=== PATIENT | female | born 1975 | race Caucasian/White ===

== ENCOUNTER 2017-09-11 13:07 | Emergency (ER) | payer BC, OTHER ==
[2017-09-11] MEDS ORDERED: Ketorolac Tromethamine 30 MG/ML VIAL ONE (13:58)
[2017-09-11] MEDS ORDERED: Ondansetron HCl/PF 4 MG/2 ML Vial ONE (13:58)
[2017-09-11 14:12] LABS: Bilirubin Negative (Negative); Blood, Urine Small (Negative); Clarity CLEAR (Clear); Glucose, Urine (Dipstick) Negative (Negative); Leukocyte Negative (Negative); Nitrite Negative (Negative); Protein, Urine (Dipstick) Negative (Neg-Trace); Specific Gravity, Urine 1.022 (1.002-1.036); Urobilinogen 0.2 mg/dL (0.2-1.0); pH, Urine 5.5 (5.0-9.0)
[2017-09-11 14:13] LABS: Bacteria/HPF None Seen HPF (None Seen); Hyaline Casts/LPF 0-3 HYALINE CAST LPF (0-3 Hyaline); Pathc Cast-AUWi Flag 0.54 (0-2.49); Squamous Epithelial 0-3 HPF (0-3); WBC/HPF 0-3 HPF (0-3)
[2017-09-11 14:14] LABS: Pregnancy Test - Urine (BHCG) Negative (Negative); Pregu Control Background? CLEAR/WHITE (CLR/WHITE); Pregu Control Bar Appear? YES (CONTROL BAR); Specific Gravity 1.022 (1.002-1.036)
[2017-09-11 14:17] LABS: #Basophils 0.1 thou/uL (0.0-0.2); #Eosinphils 0.2 thou/uL (0.0-0.7); #Lymphocytes 2.4 thou/uL (1.20-3.40); #Monocytes 0.6 thou/uL (0.11-0.59); #Neutrophils 8.3 thou/uL (1.40-6.50); %Basophils 0.9 % (0.0-1.0); %Lymphocytes 20.4 % (21.0-51.0); %Neutrophils 71.7 % (42.0-75.0); Mean Corpuscular HGB CONC 33.5 g/dL (32.0-36.0); Mean Corpuscular Hemoglobin 29.4 pg (27.0-31.0); Mean Corpuscular Volume 87.6 fl (81.0-99.0); Mean Platelet Volume 7.5 fL (7.4-10.4); Platelet Count 362 thou/uL (130-400); RBC Distribution Width 12.8 % (11.5-14.5); Red Blood Cell (RBC) Count 5.09 mill/uL (4.20-5.40); White Blood Cell (WBC) Count 11.6 thou/uL (4.8-10.8)
[2017-09-11 14:22] LABS: BHCG - Serum Negative (NEGATIVE); Pregs Control Background? CLEAR/WHITE (CLR/WHITE); Pregs Control Bar Appear? YES (CONTROL BAR)
[2017-09-11 14:37] LABS: ALT (SGPT) 13 U/L (8-55); AST (SGOT) 15 U/L (5-34); Albumin 4.1 g/dL (3.5-5.0); Alkaline Phosphatase 85 U/L (40-150); Anion Gap 13 mmol/L (10-20); BUN (Urea Nitrogen) 12 mg/dL (7.0-18.7); Bilirubin, Total 0.9 mg/dL (0.2-1.2); Calc. Creatinine Clearance 0 mL/min (70-130); Calcium 9.1 mg/dL (7.8-10.44); Carbon Dioxide 19 mmol/L (22-29); Chloride 109 mmol/L (98-107); Estimated GFR-MDRD 67; Globulin 3.6 g/dL (2.4-3.5); Glucose 112 mg/dL (70-105); Lipase 37 U/L (8-78); Potassium 3.8 mmol/L (3.5-5.1); Protein, Total 7.7 g/dL (6.0-8.3); Sodium 137 mmol/L (136-145)
--- NOTE | 2017-09-11 15:49 | CT ---
NONCONTRAST ABDOMEN AND PELVIC CT SCAN 09/11/17 HISTORY: 41-year-old female with history of right flank pain for the past two days. There is a 0.3 cm diameter pleural based nodule adjacent to the left hemidiaphragm. Status post phil cystectomy. Liver, pancreas, spleen, and adrenal glands are unremarkable. Both kidneys show some jung rly prominent irregularity of the renal contours suggesting bilateral scarring, somewhat worse one th e left side. Very tiny punctate nonobstructing left renal calculus. There is some right renal hydrone phrosis with dilatation of the right upper collecting system secondary to an obstructing 0.5 x 0.8 cm diameter calculus at the ureteropelvic junction. No evidence of distal right ureteral calculus or le ft ureteral calculus. Normal appearing appendix. Unremarkable uterus and adnexal regions. IMPRESSION: Moderately obstructing right sided calculus at the uteropelvic junction. Tiny nonobstructing left valerio al calculus. Some nodularity of both kidneys with a more prominent appearance on the left side, evide nce for some bilateral renal scarring, worse on the left. Normal appearing appendix. Status post chol ecystectomy. 0.3 cm diameter pleural based nodule adjacent to the left hemidiaphragm. Given the small size of this nodule unless the patient is at high risk, no additional workup is needed. Code LN POS: JEWEL
== END 2017-09-11 16:12 | disposition home or self-care (01) ==
LOC: ERS 13:07
DX: N13.2 Hydronephrosis with renal and ureteral calculous obstruction (principal); E11.9 Type 2 diabetes mellitus without complications; F32.9 Major depressive disorder, single episode, unspecified; Z79.899 Other long term (current) drug therapy
CPT/HCPCS: 74176; 80053; 81003; 81015; 81025; 83690; 84703; 85025; 93005; 96361; 96374; 96375; J1885; J2270; J2405

== ENCOUNTER 2017-09-13 17:28 | Outpatient (CLI) | payer OTHER | END 2017-09-13 17:29 | disposition home or self-care (01) | LOC: BICRAD 17:28 | PROVIDERS: ATTEND Dermatology | DX: C43.9 Malignant melanoma of skin, unspecified (principal) | CPT/HCPCS: 71046 ==

== ENCOUNTER 2017-10-19 07:57 | Observation (INO) | payer OTHER ==
[2017-10-19] MEDS ORDERED: Ketorolac Tromethamine 30 MG/ML VIAL ONE (08:30)
[2017-10-19] MEDS ORDERED: Ondansetron HCl/PF 4 MG/2 ML Vial ONE ×2 (08:30→17:32)
[2017-10-19 08:43] LABS: #Basophils 0.1 thou/uL (0.0-0.2); #Eosinphils 0.3 thou/uL (0.0-0.7); #Lymphocytes 2.2 thou/uL (1.20-3.40); #Monocytes 0.4 thou/uL (0.11-0.59); #Neutrophils 5.7 thou/uL (1.40-6.50); %Basophils 0.9 % (0.0-1.0); %Eosinophils 3.4 % (0.0-10.0); %Lymphocytes 24.9 % (21.0-51.0); %Neutrophils 65.7 % (42.0-75.0); Hemoglobin 15.3 g/dL (12.0-16.0); Mean Corpuscular Hemoglobin 28.4 pg (27.0-31.0); Mean Corpuscular Volume 86.1 fl (81.0-99.0); Platelet Count 392 thou/uL (130-400); RBC Distribution Width 12.7 % (11.5-14.5); Red Blood Cell (RBC) Count 5.39 mill/uL (4.20-5.40); White Blood Cell (WBC) Count 8.7 thou/uL (4.8-10.8)
[2017-10-19 08:45] LABS: Bilirubin Negative (Negative); Blood, Urine Large (Negative); Clarity CLOUDY (Clear); Glucose, Urine (Dipstick) Negative (Negative); Leukocyte Trace (Negative); Nitrite Negative (Negative); Protein, Urine (Dipstick) Trace mg/dL (Neg-Trace); Specific Gravity, Urine 1.025 (1.002-1.036); Urobilinogen 0.2 mg/dL (0.2-1.0); pH, Urine 5.5 (5.0-9.0)
[2017-10-19 08:48] LABS: Bacteria/HPF 1+ HPF (None Seen); Pathc Cast-AUWi Flag 1.49 (0-2.49)
[2017-10-19 08:54] LABS: Pregnancy Test - Urine (BHCG) Negative (Negative); Pregu Control Background? CLEAR/WHITE (CLR/WHITE); Pregu Control Bar Appear? YES (CONTROL BAR); Specific Gravity 1.025 (1.002-1.036); Yeast-AUWi Flag 33.3 (0-25.0)
[2017-10-19 09:05] LABS: RBC/HPF 21-50 HPF (0-3)
[2017-10-19 09:06] LABS: WBC/HPF 0-3 HPF (0-3); Yeast-All Forms None Seen HPF (None Seen)
[2017-10-19 09:07] LABS: Hyaline Casts/LPF NONE SEEN LPF (0-3 Hyaline)
[2017-10-19 09:09] LABS: ALT (SGPT) 14 U/L (8-55); AST (SGOT) 16 U/L (5-34); Albumin 4.4 g/dL (3.5-5.0); Alkaline Phosphatase 96 U/L (40-150); Anion Gap 14 mmol/L (10-20); BUN (Urea Nitrogen) 11 mg/dL (7.0-18.7); Bilirubin, Total 0.6 mg/dL (0.2-1.2); Calc. Creatinine Clearance 0 mL/min (70-130); Calcium 9.5 mg/dL (7.8-10.44); Carbon Dioxide 22 mmol/L (22-29); Chloride 106 mmol/L (98-107); Estimated GFR-MDRD 54; Globulin 3.5 g/dL (2.4-3.5); Glucose 141 mg/dL (70-105); Potassium 3.6 mmol/L (3.5-5.1); Protein, Total 7.9 g/dL (6.0-8.3); Sodium 138 mmol/L (136-145)
[2017-10-19] MEDS ORDERED: Morphine 4 MG/ML VIAL ONE (09:19)
--- NOTE | 2017-10-19 10:03 | CT ---
CT ABDOMEN AND PELVIS WITHOUT CONTRAST STONE PROTOCOL: HISTORY: Right-sided flank pain. COMPARISON: CT abdomen and pelvis 09/11/17. FINDINGS: Lung bases are clear. No pericardial effusion. Prior cholecystectomy. There is moderate right-sided hydroureteral nephrosis with 2 separate distal obstructing calculi at the ureterovesicular junction. More distal stone measures 2 x 4 mm and the mo re proximal stone also measures 2 x 4 mm. Mild right-sided perinephric and periureteral stranding. Punctate calculi left renal collecting system. Lobular appearance of both kidneys. The aortoiliac contour is nonaneurysmal. The appendix is visualized and is normal. Small fat-containing umbilical hernia. No dilated loops of large or small bowel. IMPRESSION: Two separate right distal ureteral calculi measuring approximately 2 x 4 mm ureterovesicular junction causing obstructive uropathy on the right. There is moderate right-side hydroureteronephrosis with p erinephric and periureteral stranding. POS: JEWEL
[2017-10-19] MEDS ORDERED: HYDROmorphone 0.5 MG/0.5 ML SYRINGE ONE ×3 (11:31→17:16)
[2017-10-19] MEDS ORDERED: Morphine 2 MG/ML SYRINGE ONE ×3 (14:07→14:46)
[2017-10-19] MEDS ORDERED: Iothalamate Meglumine 60% 50 ML VIAL FS ONE (15:32)
[2017-10-19] MEDS ORDERED: Fentanyl 250 MCG/5 ML VIAL ONE ×2 (16:19→17:16)
[2017-10-19] MEDS ORDERED: Dexamethasone 20 MG/5 ML VIAL ONE (17:32)
[2017-10-19] MEDS ORDERED: diphenhydrAMINE 50 MG/ML VIAL ONE (17:32)
[2017-10-19] MEDS ORDERED: Propofol 200 MG/20 ML VIAL ONE (17:32)
[2017-10-19] MEDS ORDERED: Glycopyrrolate 0.2 MG/ML 5 ML SYRINGE ONE (17:32)
[2017-10-19] MEDS ORDERED: Lidocaine 1% PF 5 ML VIAL ONE (17:32)
[2017-10-19] MEDS ORDERED: ePHEDrine/0.9% NaCl/PF SYRINGE 50 mg/10 ml ONE (17:32)
[2017-10-19] MEDS ORDERED: PHENYLEPHRINE-NS 100 MCG/ML 10 ML SYRINGE ONE (17:32)
[2017-10-19] MEDS ORDERED: Ondansetron HCl/PF 4 MG/2 ML Vial SLOW IVP PRN (19:47)
[2017-10-19] MEDS ORDERED: Morphine 4 MG/ML VIAL SLOW IVP PRN (19:47)
[2017-10-19] MEDS ORDERED: Acetaminophen 325 MG TAB PO PRN (19:48)
[2017-10-19] MEDS ORDERED: Topiramate 25 MG TAB PO SCH (20:15)
[2017-10-19] MEDS ORDERED: Pioglitazone HCl 15 MG TAB PO SCH (20:15)
[2017-10-19] MEDS ORDERED: Tamsulosin HCl 0.4 MG CAP PO SCH (21:00)
[2017-10-19] MEDS: Dextrose 5%-Lactated Ringers 1,000 ML IV SCH (21:08)
--- NOTE | 2017-10-19 21:31 | OP ---
DATE OF PROCEDURE: 10/19/2017 PREOPERATIVE DIAGNOSIS: Right ureteral calculi, uncontrolled pain. POSTOPERATIVE DIAGNOSIS: Right ureteral calculi, uncontrolled pain. PROCEDURE PERFORMED: Cystoscopy, left retrograde pyelogram. SURGEON: Rosie Cartwright ANESTHESIA: General. INDICATIONS: Ms. Hobson is a 41-year-old female who is status post ESWL for right renal stone on 10/05/2017. She developed right-sided flank pain on 2017. When the pain became unbearable, she presented to the emergency room today. CT scan demonstrated 2 fragments in the right ureter. The pain cannot be well controlled and for that reason, she is brought to the operating room for cystoscopy, right ureteral stent placement. DETAILS OF PROCEDURE: The patient was given general anesthesia and IV antibiotics. She was sterilely prepped and draped in lithotomy position. Cystoscope was passed into the bladder. The bladder was examined in its entirety. After prolonged and careful examination and including probing all suspicious openings consistent with the ureteral orifice with the guidewire, the right ureteral orifice could not be visualized. The left ureteral orifice was visualized and retrograde pyelography was performed and was normal. After this prolonged effort from the right ureteral orifice, the bladder was drained, cystoscope was removed. The patient was transferred from the operating room to the recovery room in stable condition. COMPLICATIONS: None. ESTIMATED BLOOD LOSS: Minimal. MTDD
[2017-10-19 21:33] VITALS: BMI 39.2
[2017-10-20 05:47] LABS: #Lymphocytes 0.8 thou/uL (1.20-3.40); #Monocytes 0.2 thou/uL (0.11-0.59); #Neutrophils 8.4 thou/uL (1.40-6.50); %Basophils 0.2 % (0.0-1.0); %Eosinophils 0.4 % (0.0-10.0); %Lymphocytes 8.7 % (21.0-51.0); %Monocytes 2.2 % (0.0-10.0); %Neutrophils 88.5 % (42.0-75.0); Hemoglobin 14.4 g/dL (12.0-16.0); Mean Corpuscular HGB CONC 33.2 g/dL (32.0-36.0); Mean Corpuscular Hemoglobin 28.7 pg (27.0-31.0); Mean Corpuscular Volume 86.3 fl (81.0-99.0); Mean Platelet Volume 7.7 fL (7.4-10.4); Platelet Count 320 thou/uL (130-400); RBC Distribution Width 12.6 % (11.5-14.5); Red Blood Cell (RBC) Count 5.02 mill/uL (4.20-5.40); White Blood Cell (WBC) Count 9.5 thou/uL (4.8-10.8)
[2017-10-20] MEDS: Dextrose 5%-Lactated Ringers 1,000 ML IV SCH (05:48)
[2017-10-20] MEDS ORDERED: Levothyroxine Sodium 50 MCG TAB PO SCH (06:00)
[2017-10-20 06:07] LABS: INR-International Normal Ratio 1.1; Prothrombin Time 14.4 SEC (12.0-14.7)
[2017-10-20 06:12] LABS: Anion Gap 14 mmol/L (10-20); BUN (Urea Nitrogen) 10 mg/dL (7.0-18.7); Calc. Creatinine Clearance 152 mL/min (70-130); Calcium 8.6 mg/dL (7.8-10.44); Carbon Dioxide 19 mmol/L (22-29); Chloride 110 mmol/L (98-107); Estimated GFR-MDRD 68; Glucose 189 mg/dL (70-105); Potassium 3.9 mmol/L (3.5-5.1); Sodium 139 mmol/L (136-145)
[2017-10-20 08:21] VITALS: BP 130/77; TEMP 97.7
[2017-10-20] MEDS ORDERED: Pioglitazone HCl 15 MG TAB PO SCH (09:00)
[2017-10-20] MEDS ORDERED: Topiramate 25 MG TAB PO SCH (09:00)
--- NOTE | 2017-10-21 10:34 | DIS ---
DATE OF ADMISSION: 10/19/2017 DATE OF DISCHARGE: 10/20/2017 ADMISSION DIAGNOSIS: Right ureteral stones. HISTORY OF PRESENT ILLNESS: Ms. Hobson is a 41-year-old female who was admitted to the hospital wit h right-sided flank pain. She had a previous history of ESWL. She was doing well until shortly prio r to admission with developed severe right-sided flank pain. HOSPITAL COURSE: The patient underwent CT scan as noted to have distal right ureteral stones. Her p ain was poorly managed. She was taken to the operating room. In the operating room, the right urete ral orifice could not be visualized or intubated with a guidewire. She was observed overnight with pl ans on performing nephrostomy tube placement if her pain worsens or she develops any fever. She did improve with regards to pain and opted to forego any additional treatment by percutaneous nephrostomy unless her pain worsens, developed fever. She was discharged home on 10/20/2017 in stable condition . COMPLICATIONS IN THE HOSPITAL: None.
== END 2017-10-20 10:25 | disposition home or self-care (01) ==
LOC: ERS 07:57 → SDC 13:00 → SURG B 20:22
PROVIDERS: ADMIT Urology; ATTEND Urology
PROC: BT1FZZZ Fluoroscopy of Left Kidney, Ureter and Bladder (ICD-10-PCS; principal; 2017-10-20)
DX: N20.1 Calculus of ureter (principal); E11.9 Type 2 diabetes mellitus without complications; F32.9 Major depressive disorder, single episode, unspecified; Z79.84 Long term (current) use of oral hypoglycemic drugs; Z79.899 Other long term (current) drug therapy; Z88.0 Allergy status to penicillin; Z90.49 Acquired absence of other specified parts of digestive tract; Z98.891 History of uterine scar from previous surgery; Z98.890 Other specified postprocedural states; Z87.442 Personal history of urinary calculi
CPT/HCPCS: 36415; 36416; 74176; 74420; 80048; 80053; 81003; 81015; 81025; 85025; 85610; 96361; 96365; 96374; 96375; 96376; A4216; C1758; C1769; G0378; J0744; J1100; J1170; J1200; J1885; J2001; J2270; J2405; J2704; J3010; Q9961

== ENCOUNTER 2019-02-13 08:31 | Emergency (ER) | payer OTHER ==
--- NOTE | 2019-02-13 10:29 | ULT ---
Exam: Right lower extremity venous ultrasound with Doppler HISTORY: Right leg edema and swelling. COMPARISON: None TECHNIQUE: Grayscale, color flow, Doppler imaging and spectral wave muscle right lower extremity veno us system FINDINGS: There is compressibility, presence of flow and augmentation in the common femoral vein, femoral vein and proximal tibial vein. Flow in the greater saphenous vein, profunda vein and posterior tibial vein IMPRESSION: No evidence of thrombus in the right lower extremity deep venous system
== END 2019-02-13 10:45 | disposition home or self-care (01) ==
LOC: ERS 08:31
DX: L03.115 Cellulitis of right lower limb (principal); F32.9 Major depressive disorder, single episode, unspecified

== ENCOUNTER 2021-11-13 20:55 | Emergency (ER) | payer BC, SELFPAY ==
[2021-11-13 23:24] LABS: Bacteria/HPF None Seen HPF (None Seen); Bilirubin Negative (Negative); Blood, Urine 3+ (Negative); Clarity Clear (Clear); Glucose, Urine (Dipstick) Greater than 1000 mg/dL (Negative); Ketone, Urine Trace mg/dL (Negative); Leukocyte Negative Leu/uL (Negative); Nitrite Negative (Negative); Protein, Urine (Dipstick) 10 mg/dL (Neg-Trace); RBC/HPF 21-50 HPF (0-3); Specific Gravity, Urine 1.033 (1.002-1.036); Squamous Epithelial 0-3 HPF (0-3); Urobilinogen Normal mg/dL (Less than 2); WBC/HPF 0-3 HPF (0-3); pH, Urine 5.5 (5.0-9.0)
[2021-11-14 00:48] LABS: #Basophils 0.1 thou/uL (0.0-0.2); #Eosinphils 0.4 thou/uL (0.0-0.7); #Lymphocytes 2.2 thou/uL (1.20-3.40); #Monocytes 0.7 thou/uL (0.11-0.59); #Neutrophils 8.9 thou/uL (1.40-6.50); %Basophils 0.4 % (0.0-1.0); %Eosinophils 3.4 % (0.0-10.0); %Lymphocytes 17.6 % (21.0-51.0); %Monocytes 5.8 % (0.0-10.0); %Neutrophils 72.8 % (42.0-75.0); Hemoglobin 14.9 g/dL (12.0-16.0); Mean Corpuscular HGB CONC 33.1 g/dL (32.0-36.0); Mean Corpuscular Hemoglobin 28.7 pg (27.0-31.0); Mean Corpuscular Volume 86.6 fL (78.0-98.0); Mean Platelet Volume 7.8 fL (7.4-10.4); Platelet Count 329 thou/uL (130-400); RBC Distribution Width 12.9 % (11.5-14.5); White Blood Cell (WBC) Count 12.2 thou/uL (4.8-10.8)
[2021-11-14] MEDS ORDERED: Ondansetron PF 4 MG/2 ML Vial ONE (01:13)
[2021-11-14] MEDS ORDERED: Morphine 4 MG/ML VIAL ONE (01:13)
[2021-11-14 01:34] LABS: Pregnancy Test - Urine (BHCG) Negative (Negative); Pregu Control Background? CLEAR/WHITE (CLR/WHITE); Pregu Control Bar Appear? YES (CONTROL BAR)
[2021-11-14 01:34] LABS: ALT (SGPT) 17 U/L (8-55); AST (SGOT) 15 U/L (5-34); Albumin 4.1 g/dL (3.5-5.0); Alkaline Phosphatase 107 U/L (40-110); Anion Gap 14 mmol/L (10-20); BUN (Urea Nitrogen) 9 mg/dL (7.0-18.7); Bilirubin, Total 0.8 mg/dL (0.2-1.2); Calc. Creatinine Clearance 0 mL/min (70-130); Calcium 9.2 mg/dL (7.8-10.44); Carbon Dioxide 23 mmol/L (22-29); Chloride 102 mmol/L (98-107); Globulin 3.6 g/dL (2.4-3.5); Glucose 314 mg/dL (70-105); Potassium 4.2 mmol/L (3.5-5.1); Protein, Total 7.7 g/dL (6.0-8.3); Sodium 135 mmol/L (136-145)
[2021-11-14 01:35] LABS: Specific Gravity 1.033 (1.002-1.036)
== END 2021-11-14 03:56 | disposition home or self-care (01) ==
LOC: ERS 22:54
DX: N20.0 Calculus of kidney (principal); E11.9 Type 2 diabetes mellitus without complications
CPT/HCPCS: 36415; 74176; 80053; 81003; 81015; 81025; 83690; 85025; 93005; 96374; 96375; J2270; J2405